=== PATIENT | male | born 1960 | race Caucasian/White ===

== ENCOUNTER 2023-04-10 11:23 | Emergency (ER) | payer OTHER, BC ==
[2023-04-10 11:34] VITALS: BP 131/57; PULSE 82; RESP 17; TEMP 98.2; BMI 41.3
== END 2023-04-10 14:00 | disposition home or self-care (01) ==
LOC: JER 11:23
DX: S80.11XA Contusion of right lower leg, initial encounter (principal); R22.41 Localized swelling, mass and lump, right lower limb; V43.52XA Car driver injured in collision with other type car in traffic accident, initial encounter; Y92.410 Unspecified street and highway as the place of occurrence of the external cause
CPT/HCPCS: 73590-TC-RT-FY; 99283-25